=== PATIENT | male | born 1980 | race Caucasian/White ===

== ENCOUNTER 2023-06-07 14:51 | Outpatient (AMB) | payer OTHER, SELFPAY ==
[2023-06-07 14:52] VITALS: BP 152/90; PULSE 105; O2SAT 96; BMI 54.9
--- NOTE | 2023-06-07 14:52 | HO.NEPHOV ---
HPI HPI Comments History of Present Illness Details I had the delight of seeing Anthony in follow-up of his hypertension and proteinuria. He has had CHARU from sepsis in the past and was briefly on hemodialysis. He had recovered his renal functions and had come off renal replacement. Two years ago he had moved to [facility] to [facility] and had hospitalization for heart failure. I have not had any records of the same. He stays his ejection fraction is only 35%. His blood sugars are still labile. He has not lost weight. His shortness of breath is better. He denies any chest pain, proximal nocturnal dyspnea or orthopnea. He claims to be compliant with his medications. He also had a hospitalization in [facility] as per the patient, the details of which are unknown at the time of this office visit. [facility] Medical History (Updated 06/07/23 @ 15:20 by Chidi Soto MD) Hypertension Type 2 diabetes mellitus with diabetic nephropathy Proteinuria Family History (Updated 06/07/23 @ 15:00 by Thania Banks) Mother COPD (chronic obstructive pulmonary disease) Dementia Father Heart failure Social History (Updated 06/07/23 @ 15:00 by Thania Banks) Alcohol intake: never Patient Tobacco Use Status: Never used Tobacco Vital Signs 06/07/23 14:52 Height 5 ft 8 in Weight 361 lb BMI 54.9 BP 152/90 H Blood Pressure Location Lt brachial Position Sitting Pulse 105 H Pulse Source Pulse Oximeter Pulse Oximetry (%) 96 Oxygen Delivery Method Room Air Physical Exam Vital Signs: Last Vital Signs Pulse 105 H 06/07/23 14:52 BP 152/90 H 06/07/23 14:52 Pulse Ox 96 06/07/23 14:52 Oxygen Delivery Method Room Air 06/07/23 14:52 BMI result Body Mass Index 54.9 Const General: comfortable and no acute distress Orientation/consciousness: patient oriented x3 HEENT Head: Yes normocephalic Mouth: Normal oral and palatal mucosa present Eyes EOM: EOMs intact bilaterally Neck Neck: Yes supple Resp Auscultation: diminished lung sounds Cardio Rate: regular rate Heart sounds: S1 normal heart sound present GI Palpation (GI): Soft to palpation Auscultation: normal bowel sounds General: Yes no CVA tenderness Back/Spine/Pelvis Back: no CVA tenderness Skin General skin exam: no rashes or lesions noted Neuro General: patient oriented x3 and moves all extremities Extrem General: Yes no pedal edema Assessment & Plan Assessment & Plan (1) Cardiomyopathy: Code(s): I42.9 - Cardiomyopathy, unspecified Qualifiers: Cardiomyopathy type: unspecified Qualified Code(s): I42.9 - Cardiomyopathy, unspecified (2) Proteinuria: Code(s): R80.9 - Proteinuria, unspecified Qualifiers: Proteinuria type: other Qualified Code(s): R80.8 - Other proteinuria (3) Type 2 diabetes mellitus with diabetic nephropathy: Code(s): E11.21 - Type 2 diabetes mellitus with diabetic nephropathy Qualifiers: Diabetes mellitus assisted insulin use: with assisted use Qualified Code(s): E11.21 - Type 2 diabetes mellitus with diabetic nephropathy; Z79.4 - terminal operator (current) use of insulin (4) Hypertension: Code(s): I10 - Essential (primary) hypertension Qualifiers: Hypertension type: primary hypertension Qualified Code(s): I10 - Essential (primary) hypertension Plan He has had CHARU in the past but recovered from renal replacement. He continues to have high BMI. He recently had heart failure. He is a diabetic. He is unsure whether he had coronary angiography in [place]. He had consulted Dr. Holguin in the past for gastric sleeve surgery. He is on [facility]. I have ordered blood work and urine studies. I have requested medical records from [facility] and [facility]. I made a cardiology referral. He is going to follow-up with me in a few weeks with all these data for optimization of medications and continued care. All questions answered. Follow-up given Orders: Orders C Reactive Protein Today E11.21 - Type 2 diabetes mellitus with diabetic nephropathy, I10 - Essential (primary) hypertension, I42.9 - Cardiomyopathy, unspecified, R80.9 - Proteinuria, unspecified Protein Creatinine Ratio, Ur Today E11.21 - Type 2 diabetes mellitus with diabetic nephropathy, I10 - Essential (primary) hypertension, I42.9 - Cardiomyopathy, unspecified, R80.9 - Proteinuria, unspecified NT-proBNP Today E11.21 - Type 2 diabetes mellitus with diabetic nephropathy, I10 - Essential (primary) hypertension, I42.9 - Cardiomyopathy, unspecified, R80.9 - Proteinuria, unspecified Hemoglobin A1c Today E11.21 - Type 2 diabetes mellitus with diabetic nephropathy, I10 - Essential (primary) hypertension, I42.9 - Cardiomyopathy, unspecified, R80.9 - Proteinuria, unspecified Electrolytes Today E11.21 - Type 2 diabetes mellitus with diabetic nephropathy, I10 - Essential (primary) hypertension, I42.9 - Cardiomyopathy, unspecified, R80.9 - Proteinuria, unspecified Blood Urea Nitrogen Today E11.21 - Type 2 diabetes mellitus with diabetic nephropathy, I10 - Essential (primary) hypertension, I42.9 - Cardiomyopathy, unspecified, R80.9 - Proteinuria, unspecified Creatinine Today E11.21 - Type 2 diabetes mellitus with diabetic nephropathy, I10 - Essential (primary) hypertension, I42.9 - Cardiomyopathy, unspecified, R80.9 - Proteinuria, unspecified Immunofixation Pnl, Serum Today E11.21 - Type 2 diabetes mellitus with diabetic nephropathy, I10 - Essential (primary) hypertension, I42.9 - Cardiomyopathy, unspecified, R80.9 - Proteinuria, unspecified Referrals Cardiology Referral E11.21 - Type 2 diabetes mellitus with diabetic nephropathy, I10 - Essential (primary) hypertension, I42.9 - Cardiomyopathy, unspecified, R80.9 - Proteinuria, unspecified Medications: New torsemide 20 mg PO BID 30 days 60 tabs 3RF Coding Level of Care Code Est Pt Level 4 (75419) Diagnoses Cardiomyopathy, unspecified type I42.9 Cardiomyopathy type: unspecified Other proteinuria R80.8 Proteinuria type: other Type 2 diabetes mellitus with diabetic nephropathy, with long-term current use of insulin E11.21; Z79.4 Diabetes mellitus terminal worker insulin use: with terminal worker use Primary hypertension I10 Hypertension type: primary hypertension Results Reviewed Nephrology Results: No Data to Display
== END 2023-06-07 15:26 | disposition home or self-care (01) ==
PROVIDERS: PCP Internal Medicine; Visit Provider Internal Medicine Nephrology
DX: I42.9 Cardiomyopathy, unspecified (principal); R80.8 Other proteinuria; E11.21 Type 2 diabetes mellitus with diabetic nephropathy; Z79.4 Long term (current) use of insulin; I10 Essential (primary) hypertension
CPT/HCPCS: 99214

== ENCOUNTER → 2023-06-07 14:51 | Outpatient (BNVA) | payer OTHER, SELFPAY | PROVIDERS: PCP Internal Medicine; Visit Provider Internal Medicine Nephrology | DX: I10 Essential (primary) hypertension (principal); I42.9 Cardiomyopathy, unspecified; R80.8 Other proteinuria; E11.21 Type 2 diabetes mellitus with diabetic nephropathy; Z79.4 Long term (current) use of insulin | CPT/HCPCS: 99212 ==